=== PATIENT | female | born 1985 | race Caucasian/White ===

== ENCOUNTER 2016-08-11 09:47 | Observation (INO) | payer OTHER ==
[~2016-08-11] VITALS: Ht 170.2 cm; Wt 101.8 kg
[~2016-08-11 09:47] MED LIST: DOXY25TA18 PO; PREN1TAB60 PO; PROG200C2 VG; SERT50TA PO; b6 PO
[2016-08-11 10:06] VITALS: BP 125/76
[2016-08-11] MEDS ORDERED: BETAMETHASONE 6 MG/ML, 5ML IM ONE ×2 (13:00→13:15)
[2016-08-11 13:40] LABS: ASPARTATE AMINO TRANSFERASE 13 U/L (15-37); BLOOD UREA NITROGEN 5 mg/dL (7-18)
== END 2016-08-11 15:02 | disposition home or self-care (01) ==
LOC: MERGE 09:47 → LDOP 09:47 → LDIP 11:40
PROVIDERS: ADMIT Obstetrics & Gynecology; ATTEND Obstetrics & Gynecology
DX: O10.913 Unspecified pre-existing hypertension complicating pregnancy, third trimester (principal); Z3A.35 35 weeks gestation of pregnancy
CPT/HCPCS: 36415; 59025; 76819; 80053; 81001; 82248; 84550; 85025; 87086; 96372; 99211; G0378; J0702; G0463